=== PATIENT | male | born 1970 | race Caucasian/White ===

== ENCOUNTER 2016-12-19 09:23 | Day surgery (SDC) | payer BC ==
[~2016-12-19] VITALS: Ht 172.7 cm; Wt 113.4 kg
[~2016-12-19 09:23] MED LIST: COLCRYS0.6 MG PO; EXFORGE HCT 101 EAC2 PO; GLUCOPHAGE1000 MG PO; SYNTHROID25 MCG PO; TRULICITY0.75 MG/0. SC
[2016-12-19 09:48] LABS: HEMATOCRIT 41.9 % (38.0-50.0); MCH 30.6 PG (29.0-34.0); MCHC 34.4 G/DL (30.0-36.0); MEAN PLAT.VOLUME 10.8 uM^3 (9.0-12.4); PLATELET COUNT 239 K/uL (156-360); RBC DIS.WIDTH-CV 12.8 % (11.8-14.6); RBC DIS.WIDTH-SD 41.9 % (39-53); RED BLOOD COUNT 4.71 M/uL (4.00-5.50); WHITE BLOOD COUNT 10.2 K/uL (4.1-10.2)
[2016-12-19 09:55] LABS: POINT-OF-CARE METER ID UU14174212
[2016-12-19 10:14] LABS: ADD MIUA? YES; BILIRUBIN NEGATIVE; BLOOD NEGATIVE; COLOR AMBER ((YELLOW)); GLUCOSE (STRIP) NEGATIVE; KETONES NEGATIVE; LEUKOCYTES NEGATIVE; NITRITE NEGATIVE; PROTEIN (STRIP) 30; SPECIFIC GRAVITY 1.024 (1.000-1.030); UROBILINOGEN 0.2 MG/DL (0.2-1.0)
[2016-12-19 10:22] LABS: BACTERIA RARE /HPF; EPITHELIAL CELLS RARE /HPF; MUCUS 4+ /LPF; RED BLOOD CELLS 0-5 /HPF (0-5); WHITE BLOOD CELLS 0-5 /HPF (0-5)
[2016-12-19 10:26] VITALS: BP 130/90
[2016-12-19] MEDS ORDERED: NORCO 5/3251 TABLET PO (14:08)
[2016-12-19 14:36] LABS: POINT-OF-CARE METER ID UU13113675
[2016-12-19 15:16] VITALS: BP 136/90
[2016-12-19 16:14] VITALS: BP 142/90
== END 2016-12-19 16:22 | disposition home or self-care (01) ==
LOC: SDC 09:23
PROVIDERS: Surgery
PROC: 0WUF4JZ Supplement Abdominal Wall with Synthetic Substitute, Percutaneous Endoscopic Approach (ICD-10-PCS; principal; 2016-12-19)
DX: K43.9 Ventral hernia without obstruction or gangrene (principal); E11.9 Type 2 diabetes mellitus without complications; I10 Essential (primary) hypertension; Z79.84 Long term (current) use of oral hypoglycemic drugs; E03.9 Hypothyroidism, unspecified
CPT/HCPCS: 81003; 82948; 85027; C1781; J0330; J0690; J2250; J2405; J3010